=== PATIENT | male | born 1970 | race American Indian/Alaskan Native ===

== ENCOUNTER 2016-12-28 08:48 | Emergency (ER) | payer OTHER ==
[2016-12-28] MEDS ORDERED: NACL 0.9% 1000 ML 1,000 ML ONE (09:29)
[2016-12-28] MEDS ORDERED: MORPHINE IV ONE (09:29)
[2016-12-28] MEDS ORDERED: ZOFRAN ONE (09:29)
[2016-12-28] MEDS ORDERED: NACL 0.9% 1000 ML 1,000 ML IV ONE (09:29)
[2016-12-28] MEDS ORDERED: ZOFRAN IV ONE (09:29)
[2016-12-28] MEDS ORDERED: MORPHINE ONE (09:30)
--- NOTE | 2016-12-28 09:44 | Emergency Department Report ---
ED Abdominal Pain HPI - General Chief Complaint: Abdominal Pain Stated Complaint: CHEST PAIN/BACK PAIN Time Seen by Provider: 12/28/16 09:14 Source: patient Mode of arrival: Ambulatory Limitations: No Limitations - History of Present Illness Initial Comments: Pt is a 46 yr old male with a h/o HTN who reports chest pain and RLQ flank/back pain. Pt reports a dull ache in his chest awoke him at 5am, which has resolved, but now c/o excruciating, sharp, constant, R Flank pain. He reports "I can't get into a comfortable position". Associated nausea and vomiting x 6 episodes. No prior episodes or h/o renal colic. Pt is a smoker, otherwise no other pertinent risk factors. Otherwise no fevers, chills, MONTIEL, SOB, abdominal pain, extremity pain, travel, or sick contacts MD Complaint: flank pain, other (L chest pain, has resolved) -: Sudden Location: R flank Radiation: back Migration to: no migration Severity: severe Severity scale (0 -10): 10 Quality: stabbing Consistency: constant Improves With: nothing Worsens With: nothing - Related Data Previous Rx's Medication Instructions Recorded Last Taken Type Ondansetron [Zofran ODT TAB] 8 mg PO Q8HR #12 tab.rapdis 12/28/16 Unknown Rx Oxycodone HCl [oxyCODONE TAB] 10 mg PO Q6H PRN #12 tablet 12/28/16 Unknown Rx Tamsulosin [Flomax] 0.4 mg PO ONCE #30 capsule 12/28/16 Unknown Rx Allergies Allergy/AdvReac Type Severity Reaction Status Date / Time tetracycline AdvReac Rash Verified 12/28/16 09:03 ED Review of Systems ROS: Stated complaint: CHEST PAIN/BACK PAIN Other details as noted in HPI Comment: All other systems reviewed and negative ED Past Medical Hx - Past Medical History Previous Medical History?: No - Surgical History Past Surgical History?: No - Social History Smoking Status: Current Every Day Smoker Substance Use Type: Alcohol - Medications Home Medications: Home Medications Medication Instructions Recorded Confirmed Last Taken Type Ondansetron [Zofran ODT TAB] 8 mg PO Q8HR #12 tab.rapdis 12/28/16 Unknown Rx Oxycodone HCl [oxyCODONE TAB] 10 mg PO Q6H PRN #12 tablet 12/28/16 Unknown Rx Tamsulosin [Flomax] 0.4 mg PO ONCE #30 capsule 12/28/16 Unknown Rx ED Physical Exam - General Limitations: No Limitations General appearance: alert, in no apparent distress - Head Head exam: Present: atraumatic, normocephalic - Eye Eye exam: Present: normal appearance - ENT ENT exam: Present: mucous membranes moist - Neck Neck exam: Present: normal inspection - Respiratory Respiratory exam: Present: normal lung sounds bilaterally. Absent: respiratory distress - Cardiovascular Cardiovascular Exam: Present: regular rate, normal rhythm. Absent: systolic murmur, diastolic murmur, rubs, gallop - GI/Abdominal GI/Abdominal exam: Present: soft, tenderness (R flank ), normal bowel sounds. Absent: distended, guarding, rebound, rigid - Rectal Rectal exam: Present: deferred - Extremities Exam Extremities exam: Present: normal inspection - Back Exam Back exam: Present: normal inspection, CVA tenderness (R). Absent: rash noted - Neurological Exam Neurological exam: Present: alert, oriented X3 - Psychiatric Psychiatric exam: Present: normal affect, normal mood - Skin Skin exam: Present: warm, dry, intact, normal color. Absent: rash ED Course Vital Signs 12/28/16 12/28/16 12/28/16 08:59 09:39 10:03 Temperature 97.4 F L Pulse Rate 83 88 Respiratory 24 22 16 Rate Blood Pressure 126/90 Blood Pressure 146/101 [Left] Blood Pressure 148/100 [Right] O2 Sat by Pulse 100 99 Oximetry 12/28/16 10:47 Temperature Pulse Rate Respiratory 18 Rate Blood Pressure Blood Pressure [Left] Blood Pressure [Right] O2 Sat by Pulse 99 Oximetry - Reevaluation(s) Reevaluation #1: 12/28/16 11:11 Pt re-evaluated, patient is resting comfortably now. ED Medical Decision Making - Lab Data Result diagrams: 12/28/16 09:12 12/28/16 09:15 - EKG Data -: EKG Interpreted by Me (time 08:50) EKG shows normal: sinus rhythm (NSR), axis (normal axis), intervals (QTc:481ms) , QRS complexes (no LVH), ST-T waves (isolated TWI in III) Rate: normal (79 bpm) - EKG Data When compared to previous EKG there are: previous EKG unavailable - Radiology Data Radiology results: report reviewed CT abdomen and pelvis: The right kidney is mildly enlarged there is mild right hydronephrosis and hydroureter. The right ureter is dilated to a 3 mm partially obstructing calculus a few centimeters proximal to the bladder. Bilateral nonobstructive tiny renal cocci. A 2 mm calculus in the left mid- level calyx and a 1 mm calculus in a left upper pole calyx. A 1-2 mm calculus of the right lower pole calyx and a 1-2 mm calculus in the right upper pole calyx. The left renal collecting system is nondilated. The liver is mildly enlarged and diffusely hypodense. The gallbladder and bile ducts are normal. Normal stomach, duodenum, pancreas and spleen. Normal adrenal glands. The aorta and inferior vena cava are normal. No ascites and no pneumoperitoneum. The small bowel and colon are normal. The appendix is also imaged and normal. The urinary bladder is small with a thickened irregular wall. Normal prostate and seminal vesicles. Normal rectum and sigmoid colon. - Medical Decision Making Results discussed with the patient. Copy of CT scan given to the patient. Advised patient to follow up with urologist as outpatient. Pt has normal Belt Sander Stone, has adequate pain control and is no longer vomiting. Pt instructed to follow up with urologist as soon as possible and if his pain worsens he should return to the ED. Critical care attestation.: If time is entered above; I have spent that time in minutes in the direct care of this critically ill patient, excluding procedure time. ED Disposition Clinical Impression: Flank pain, Kidney stone on right side, Hydronephrosis Disposition: DISCHARGED TO HOME OR SELFCARE Is pt being admited?: No Condition: Stable Instructions: Kidney Stones (ED), Hydronephrosis (ED) Additional Instructions: PLEASE RETURN TO THE ED IF YOU HAVE RETURN OF YOUR SX, INCLUDING WORSENING OF PAIN, FEVERS, CHILLS, NAUSEA, AND VOMITING Prescriptions: Ondansetron [Zofran ODT TAB] 8 mg PO Q8HR #12 tab.rapdis Oxycodone HCl [oxyCODONE TAB] 10 mg PO Q6H PRN #12 tablet PRN Reason: Pain Tamsulosin [Flomax] 0.4 mg PO ONCE #30 capsule Referrals: TERRELL CARROLL MD [Staff Physician] - [facility]
[2016-12-28 09:52] LABS: Basophils % (Auto) 0.9 % (0.0-1.8); Eosinophils % (Auto) 0.7 % (0.0-4.3); Hematocrit 43.5 % (35.5-45.6); Hemoglobin 14.7 gm/dl (11.8-15.2); Mean Corpuscular HGB Conc 34 % (32-34); Mean Corpuscular Hemoglobin 35 pg (28-32); Mean Corpuscular Volume 103 fl (84-94); Platelet Count 191 K/mm3 (140-440); Red Blood Count 4.23 M/mm3 (3.65-5.03); Red Cell Distribution Width 14.7 % (13.2-15.2); White Blood Count 8.5 K/mm3 (4.5-11.0)
[2016-12-28] MEDS ORDERED: BENTYL ONE (09:52)
[2016-12-28] MEDS ORDERED: DILAUDID IV ONE (09:54)
[2016-12-28] MEDS ORDERED: DILAUDID ONE (09:54)
[2016-12-28 09:58] LABS: Bilirubin,Urine NEG (Negative); Blood,Urine LG (Negative); Ketones,Urine TR mg/dL (Negative); Leukocyte Esterase,Urine NEG (Negative); Mucus,Urine FEW /HPF; Nitrite,Urine NEG (Negative); Urobilinogen,Urine < 2.0 mg/dL (<2.0)
[2016-12-28] MEDS ORDERED: BENTYL PO ONE (10:00)
[2016-12-28 10:01] LABS: Alanine Aminotransferase 116 units/L (7-56); Albumin 4.4 g/dL (3.9-5); Albumin/Globulin Ratio 1.2 %; Alkaline Phosphatase 71 units/L (35-129); Anion Gap 26 mmol/L; BUN/Creatinine Ratio 12.22; Blood Urea Nitrogen 11 mg/dL (9-20); Calcium 9.4 mg/dL (8.4-10.2); Carbon Dioxide 18 mmol/L (22-30); Chloride 98.7 mmol/L (98-107); Glucose 132 mg/dL (75-100); Lipase 20 units/L (13-60); Potassium 3.9 mmol/L (3.6-5.0); Sodium 139 mmol/L (137-145); Total Protein 8.2 g/dL (6.3-8.2)
--- NOTE | 2016-12-28 10:08 | Cat Scan Report ---
CT ABDOMEN AND PELVIS WITHOUT CONTRAST: 12/28/16 08:48:00 CLINICAL:Abdominal pain. TECHNIQUE: Volumetric acquisition and 1.25 millimeter scan reconstructions from the lung bases through the iliac crest. The study was performed without oral contrast. FINDINGS: Abdomen:The right kidney is mildly enlarged there is mild right hydronephrosis and hydroureter. The right ureter is dilated to a 3 mm partially obstructing calculus a few centimeters proximal to the bladder. Bilateral nonobstructive tiny renal calculi. A 2 mm calculus in a left mid level calyx and a 1 mm calculus in a left upper pole calyx. A 1-2 mm mm calculus of a right lower pole calyx and a 1-2 mm calculus in the right upper pole calyx. The left renal collecting system is nondilated. The liver is mildly enlarged and diffusely hypodense. The gallbladder and bile ducts are normal. Normal stomach, duodenum, pancreas and spleen. Normal adrenal glands. The aorta and inferior vena cava are normal. No ascites and no pneumoperitoneum. The small bowel and colon are normal. The appendix is well imaged and normal. Pelvis: The urinary bladder is small with a thickened irregular wall. Normal prostate and seminal vesicles. Normal rectum and sigmoid colon. IMPRESSION: 1. A 3 mm partially obstructing calculus of the right distal ureter a few centimeters proximal to the urinary bladder. 2. Bilateral tiny nonobstructing renal calculi. 3. Hepatic steatosis.
[2016-12-28] MEDS ORDERED: FLOMAX PO ONE (10:59)
[2016-12-28] MEDS ORDERED: ROXICODONE ONE (12:32)
[2016-12-28] MEDS ORDERED: ROXICODONE PO ONE (12:35)
[2016-12-28 13:27] VITALS: BP 139/87
== END 2016-12-28 13:10 | disposition home or self-care (01) ==
LOC: ED 08:48
DX: N20.0 Calculus of kidney (principal); N13.30 Unspecified hydronephrosis; F17.200 Nicotine dependence, unspecified, uncomplicated
CPT/HCPCS: 36415; 74176; 80053; 81001; 83690; 85025; 93005; 93010; 96361; 96374; 96375; 99284; J1170; J2270; J2405; J7030